=== PATIENT | female | born 1965 | race Caucasian/White ===

== ENCOUNTER → 2016-11-03 | Outpatient (CLI) | payer OTHER ==
--- NOTE | 2016-11-03 15:44 | XR ---
EXAMINATION TYPE: XR hand complete LT DATE OF EXAM: 11/03/2016 CLINICAL HISTORY: Pain in the second and third metacarpals from contusion TECHNIQUE: Frontal, lateral and oblique images of the left hand are obtained. COMPARISON: None. FINDINGS: There is no acute fracture/dislocation evident in the left hand. The joint spaces in the l eft hand appear within normal limits. The overlying soft tissue appears unremarkable. IMPRESSION: There is no acute fracture or dislocation in the left hand.
== END ==
LOC: RAD 15:21
PROVIDERS: ATTEND Emergency Medicine
DX: S60.222A Contusion of left hand, initial encounter (principal)

== ENCOUNTER → 2016-11-06 | Outpatient (CLI) | payer OTHER ==
--- NOTE | 2016-11-06 17:22 | XR ---
EXAMINATION TYPE: XR wrist complete LT DATE OF EXAM: 11/06/2016 COMPARISON: NONE HISTORY: Pain after injury TECHNIQUE: 4 views FINDINGS: Carpal bones are intact. I see no fracture nor dislocation. Joint spaces are fairly normal. Metacarpals are intact. IMPRESSION: Negative left wrist exam.
--- NOTE | 2016-11-06 17:23 | XR ---
EXAMINATION TYPE: XR forearm LT DATE OF EXAM: 11/06/2016 COMPARISON: NONE HISTORY: Pain TECHNIQUE: 2 views FINDINGS: I see no fracture nor dislocation. Radius and ulna appear intact. IMPRESSION: Negative left forearm exam.
== END ==
LOC: RADXRMAIN 16:48
PROVIDERS: ATTEND Emergency Medicine
DX: M79.602 Pain in left arm (principal)